=== PATIENT | female | born 1965 | race Caucasian/White ===

== ENCOUNTER 2022-03-28 12:21 | Emergency (ER) | payer MEDICARE, MEDICAID, SELFPAY ==
[2022-03-28 12:39] VITALS: BP 158/74; PULSE 79; RESP 18; TEMP 36.3; O2SAT 94; BMI 44.6
--- NOTE | 2022-03-28 13:02 | CRLHL7_ITS ---
For Patients: As a result of the Century Cures Act, medical imaging exams and procedure reports are released immediately into your electronic medical record. You may view this report before your referring provider. If you have questions, please contact your health care provider. INDICATION: Pain. TECHNIQUE: Three views left knee. IMPRESSION: Minor grade 1 medial joint space narrowing without significant osteophytes or other secondary degenerative finding. Lateral and patellofemoral compartments appear appropriately maintained for age. No fracture or bone lesion. No joint effusion. Dictated by Tj Almaguer MD @ 03/28/2022 1:44:11 PM (Electronically Signed)
--- NOTE | 2022-03-28 13:03 | ED_ITS ---
HPI - General Adult General Date Seen: 03/28/22 Chief complaint: Extremity Pain/Injury, Lower Stated complaint: Left knee injury Time Seen by Provider: 03/28/22 12:31 Source: patient Mode of arrival: ambulatory Limitations: no limitations History of Present Illness HPI narrative: 57-year-old female presents for evaluation of left knee pain and injury. Patient was returning home on an airplane flight 9 days ago. As she was departing the plane she dropped her headphone case. She was moving to pick it up when she felt like her knee buckled. Her description was that it buckled to the lateral aspect of her left knee. She felt a crunching sensation. After that it has been painful. She thought she had some swelling or early on with this. There is no direct blow to her knee and her knee did not land on the ground. When she felt her knee buckle she sat in the airplane seat. She has had no previous knee problems. She has been applying ice and resting her knee for the last few days but the pain is not improved at all. She has been able to walk on it but it is hurting her. She does have an appointment with the orthopedic clinic in 2 days. Related Data Home Medications Medication Instructions Recorded Confirmed albuterol sulfate 90 mcg/actuation 2 INHALATION PRN 03/25/22 03/25/22 aerosol inhaler aspirin 81 mg tablet,delayed 81 mg PO DAILY tab 03/25/22 03/25/22 release cyclobenzaprine 10 mg tablet 10 mg PO .Bedtime 03/25/22 03/25/22 fluoxetine 10 mg capsule 10 mg PO DAILY 03/25/22 03/25/22 fluoxetine 20 mg capsule 20 mg PO DAILY 03/25/22 03/25/22 fluticasone propionate 50 2 INTRANASAL DAILY 03/25/22 03/25/22 mcg/actuation nasal spray,suspension furosemide 20 mg tablet 20 mg PO DAILY tab 03/25/22 03/25/22 gabapentin 300 mg capsule 300 mg PO BID cap 03/25/22 03/25/22 meclizine 12.5 mg tablet 12.5 mg PO PRN 03/25/22 03/25/22 nystatin 100,000 unit/gram topical 1 TOPICAL .2-3X/Day 03/25/22 03/25/22 cream nystatin 100,000 unit/gram topical 1 TOPICAL BID 03/25/22 03/25/22 powder omeprazole 40 mg capsule,delayed 40 mg PO DAILY cap 03/25/22 03/25/22 release prednisone 20 mg tablet 20 mg PO BID tab 03/25/22 03/25/22 sumatriptan succinate 50 mg tablet 50 mg PO .As Needed PRN 03/25/22 03/25/22 trazodone 50 mg tablet 50 mg PO DAILY tab 03/25/22 03/25/22 zonisamide 50 mg capsule mg PO DAILY 03/25/22 03/25/22 amoxicillin 875 mg-potassium 1 tab PO 03/26/22 03/26/22 clavulanate 125 mg tablet benzonatate 100 mg capsule 100 mg PO PRN 03/26/22 03/26/22 Allergies Allergy/AdvReac Type Severity Reaction Status Date / Time No Known Allergies Allergy Unknown Verified 02/24/22 12:03 Review of Systems Narrative: No other injuries. No recent illness. [facility] Medical History (Updated 03/28/22 @ 13:56 by Merrick Smith MD) Chronic otitis media Encounter for removal of intrauterine contraceptive device (IUD) (08/2019) Exposure to severe acute respiratory syndrome coronavirus 2 (SARS-CoV-2) History of use of contraceptive intrauterine device (IUD) Surgical History (Updated 02/24/22 @ 12:04 by Nils Low) History of Achilles tendon repair History of appendectomy History of cervical discectomy (07/28/11) History of section (07/28/11) Family History (Updated 02/23/22 @ 15:48 by Nils Low) Brother Diabetes Other Brain cancer Social History (Updated 02/23/22 @ 15:48 by Nils Low) Narrative: Tobacco use Smoking Status: Never smoker Do you use any of these nicotine containing products: None Second hand tobacco smoke exposure: No How often do you have a drink containing alcohol: never How often do you have six or more drinks on one occasion: Never AUDIT-C Alcohol total score: 0 Non-prescribed substance use: denies use service: No Exam Narrative: Exam Narrative: Bilateral lower extremities are examined. There is no evidence of trauma, redness, swelling or deformity. Inspection of the left knee specifically shows no evidence of trauma or redness. Palpation shows mild tenderness along the anterior joint line both medially and laterally. Palpation over the patella is without significant discomfort. Her extensor mechanisms appears to be intact. Range of motion is from 0-100 degrees of flexion without significant discomfort. I do not palpate a joint effusion. Testing for ligamentous laxity shows a relatively stable tight endpoint on Elyssa's maneuver. Medial lateral collateral ligament testing causes some mild discomfort but no definite laxity is identified. Her calf is nontender there is no significant edema. She has intact pulses sensation and motion in her foot and ankle on the left. Const: Vital Signs, click to edit/add: Vital Signs - 24 hr 03/28/22 12:39 Temperature 97.4 F L Pulse Rate [Right Pulse Oximeter] 79 Respiratory Rate 18 Blood Pressure [Ri ght Upper Arm] 158/74 H Pulse Oximetry 94 Documenting provider has reviewed patient's vital signs: yes Course Course Hospital Course: Patient is able to walk in the emergency department. Radiographs of the knee show mild narrowing of the medial joint space. No other obvious bony abnormalities. Vital Signs Vital signs: Initial Vital Signs Temperature 97.4 F L 03/28/22 12:39 Temperature Source Temporal Artery Scan 03/28/22 12:39 Pulse Rate 79 03/28/22 12:39 Respiratory Rate 18 03/28/22 12:39 Blood Pressure 158/74 H 03/28/22 12:39 Blood Pressure Mean 102 03/28/22 12:39 Blood Pressure Position Sitting 03/28/22 12:39 Pulse Oximetry 94 03/28/22 12:39 Oxygen Delivery Method 03/28/22 12:39 Vital Signs Temperature 97.4 F L 03/28/22 12:39 Pulse Rate 79 03/28/22 12:39 Respiratory Rate 18 03/28/22 12:39 Blood Pressure 158/74 H 03/28/22 12:39 Pulse Oximetry 94 03/28/22 12:39 Temperature 97.4 F L 03/28/22 12:39 Pulse Rate 79 03/28/22 12:39 Respiratory Rate 18 03/28/22 12:39 Blood Pressure 158/74 H 03/28/22 12:39 Pulse Oximetry 94 03/28/22 12:39 Discharge Plan Discharge Clinical Impression: Injury of knee, left Additional Instructions: Take ibuprofen 400 mg every 6 hours as needed for pain. Continue use ice as needed for pain. See Abraham on Tuesday for re-evaluation. Activity Level: Activity as Tolerated Prescriptions: No Action zonisamide 50 mg capsule PO DAILY 0RF gabapentin 300 mg capsule 300 mg PO BID 0RF aspirin 81 mg tablet,delayed release (DR/EC) 81 mg PO DAILY 0RF meclizine 12.5 mg tablet 12.5 mg PO PRN0RF sumatriptan succinate 50 mg tablet 50 mg PO .As Needed PRN0RF Rx Instructions: ONE TAB AT ONSET OF HEADACHE, MAY REPEAT Q2H PRN, MAX 200 MG/24 HRS trazodone 50 mg tablet 50 mg PO DAILY 0RF cyclobenzaprine 10 mg tablet 10 mg PO .Bedtime 0RF fluoxetine 10 mg capsule 10 mg PO DAILY 0RF Rx Instructions: take 1 tablet in addition to prescribed 60mg; total of 70mg daily. prednisone 20 mg tablet 20 mg PO BID 0RF albuterol sulfate 90 mcg/actuation HFA aerosol inhaler 2 inhalation PRN0RF omeprazole 40 mg capsule,delayed release(DR/EC) 40 mg PO DAILY 0RF fluoxetine 20 mg capsule 20 mg PO DAILY 0RF Rx Instructions: Take 3 capsules daily in addition to the already prescribed 10 mg daily. nystatin 100,000 unit/gram powder 1 topical BID 0RF fluticasone propionate 50 mcg/actuation spray,suspension 2 intranasal DAILY 0RF nystatin 100,000 unit/gram cream 1 topical .2-3X/Day 0RF furosemide 20 mg tablet 20 mg PO DAILY 0RF benzonatate 100 mg capsule 100 mg PO PRN0RF amoxicillin-pot clavulanate 875-125 mg tablet 1 tab PO 0RF Follow Up/Referrals: Chelsea Montalvo PA-C [Primary Care Provider] -
--- NOTE | 2022-03-28 13:20 | PC.NURSE ---
pt back from imaging
== END 2022-03-28 14:25 | disposition home or self-care (01) ==
PROVIDERS: Emergency Provider Family Medicine; PCP Physician Assistant Medical
DX: S89.92XA Unspecified injury of left lower leg, initial encounter (principal)
CPT/HCPCS: 73562; 99283

== ENCOUNTER 2022-04-07 12:33 | Outpatient (RCR) | payer MEDICARE, MEDICAID, SELFPAY ==
[2022-04-06 13:00] VITALS: BP 133/84; PULSE 61; RESP 16; TEMP 36.3; O2SAT 95
[2022-04-06] MEDS: VALPROATE SODIUM 1,000 MG in 0.9 % SODIUM CHLORIDE 100 ml 100 ML 660 MG IVPB (13:29)
[2022-04-06] MEDS: METHYLPREDNISOLONE SOD SUCC 1,000 MG in 0.9 % SODIUM CHLORIDE 100 ml 100 ML 116 MG IVPB (13:50)
[2022-04-06] MEDS: KETOROLAC 30 MG/ML inj IVP (14:52)
[2022-04-06] MEDS: ONDANSETRON 2 MG/ML inj 4 MG IVP (14:52)
[2022-04-07 12:49] VITALS: BP 155/83; PULSE 60; RESP 20; TEMP 36.6; O2SAT 96
[2022-04-07] MEDS: VALPROATE SODIUM 1,000 MG in 0.9 % SODIUM CHLORIDE 100 ml 100 ML 660 MG IVPB (13:41)
[2022-04-07] MEDS: METHYLPREDNISOLONE SOD SUCC 1,000 MG in 0.9 % SODIUM CHLORIDE 100 ml 100 ML 116 MG IVPB (13:59)
[2022-04-07] MEDS: ONDANSETRON 2 MG/ML inj 4 MG IVP ×2 (15:16)
[2022-04-07] MEDS: KETOROLAC 30 MG/ML inj IVP (15:17)
[2022-04-07] MEDS: 0.9 % SODIUM CHLORIDE 250 ml IV (16:53)
[2022-04-07] MEDS: SODIUM CHLORIDE 0.9 % (FLUSH) 10 ML SYRINGE IVF (16:54)
== END 2022-10-03 23:59 | disposition home or self-care (01) ==
LOC: CCIC 12:33
PROVIDERS: PCP Physician Assistant Medical; Visit Provider Clinical Nurse Specialist
DX: G43.809 Other migraine, not intractable, without status migrainosus (principal)
CPT/HCPCS: 96360; 96365; 96374; 96376; J1885; J2405; J2930; J7050

== ENCOUNTER 2022-06-24 15:05 | Outpatient (CLI) | payer MEDICARE, MEDICAID, SELFPAY ==
[2022-06-24 22:44] LABS: C Reactive Protein* 2.1 mg/dL (0.5-1.0)
== END 2022-06-24 15:06 | disposition home or self-care (01) ==
LOC: LKVREF 15:07
PROVIDERS: PCP Physician Assistant Medical; Visit Provider Physician Assistant Medical
DX: G43.809 Other migraine, not intractable, without status migrainosus (principal)
CPT/HCPCS: 86140

== ENCOUNTER 2022-07-14 14:35 | Outpatient (CLI) | payer MEDICARE, MEDICAID, SELFPAY ==
--- NOTE | 2022-07-14 14:30 | CRLHL7_ITS ---
For Patients: As a result of the Cures Act, medical imaging exams and procedure reports are released immediately into your electronic medical record. You may view this report before your referring provider. If you have questions, please contact your health care provider. INDICATION: Vertigo. Left ear pain/fullness. TECHNIQUE: Brain and temporal bone MRI with contrast. The following sequences were obtained: DWI and ADC mapping sequences. Sagittal T1 weighted sequence. Axial FLAIR and SHARRI T2 weighted sequences of the whole brain. 3D T2-weighted CISS sequence of the temporal bones. Thin section T1 weighted axial and coronal pre-contrast and post-contrast sequences of the temporal bones. T1 weighted post-contrast sequence(s) of the whole brain. 15 cc of Dotarem gadolinium based contrast agent was used. COMPARISON : Brain MRI from 10/07/2020. FINDINGS: The membranous labyrinths are normal in appearance, with no signal abnormality or malformation. No mass or pathologic enhancement within the internal auditory canals or the cerebellopontine angle cisterns. The cisternal and canalicular segments of the 7th/8th cranial nerve complexes are normal in appearance. The other imaged cranial nerve segments are normal in appearance. Brainstem and cerebellum are normal. No evidence of acute ischemia. No evidence of acute or chronic intracranial blood products. No mass or pathologic intracranial enhancement. A few small FLAIR hyperintense foci within the supratentorial white matter, typical for chronic microvascular ischemic change. No hydrocephalus or extra-axial collections. The pituitary gland, parasellar structures and optic chiasm are normal. All the major intracranial vascular structures demonstrate normal flow-related signal. The orbital contents are normal. No calvarial or skull base marrow replacing process. No obstructive sinus disease. No extracranial soft tissue findings. IMPRESSION: 1. Normal appearance of the internal auditory pathways on high resolution imaging of the temporal bones. No mass or pathologic enhancement within the internal auditory canals or CPA cisterns. Normal appearance of the 7th/8th cranial nerves. 2. No acute infarction or other acute intracranial pathology. 3. No mass or pathologic intracranial enhancement. 4. Very minimal chronic microvascular ischemic change. Dictated by Kaushik Degroot MD @ 07/14/2022 6:19:12 PM (Electronically Signed)
--- NOTE | 2022-07-14 15:30 | CRLHL7_ITS ---
For Patients: As a result of the Century Cures Act, medical imaging exams and procedure reports are released immediately into your electronic medical record. You may view this report before your referring provider. If you have questions, please contact your health care provider. INDICATION: Vertigo. Headaches. TECHNIQUE: [id number] MRA images acquired through the head. COMPARISON: None. FINDINGS: The visualized internal carotid, middle cerebral, and anterior cerebral arteries are widely patent. The vertebral, basilar, and posterior cerebral arteries are widely patent. No intracranial aneurysm or high-flow vascular malformation. IMPRESSION: Unremarkable MRA of the head. Dictated by Keyon Hoang MD @ 07/14/2022 4:21:15 PM (Electronically Signed)
== END 2022-07-14 14:36 | disposition home or self-care (01) ==
PROVIDERS: PCP Physician Assistant Medical; Visit Provider Physician Assistant Medical
DX: R42 Dizziness and giddiness (principal); I67.82 Cerebral ischemia; H92.02 Otalgia, left ear
CPT/HCPCS: 70544; 70553; A9575

== ENCOUNTER 2022-07-21 15:10 | Outpatient (CLI) | payer MEDICARE, MEDICAID, SELFPAY ==
[2022-07-21 21:41] LABS: Iron* 47 ug/dL (37-170)
[2022-07-21 21:48] LABS: C Reactive Protein* 3.1 mg/dL (0.5-1.0)
[2022-07-21 21:50] LABS: Percent Iron Saturation 13 % (20-50); Total Iron Binding Capacity 360 ug/dL (265-497)
[2022-07-23 20:16] LABS: Rheumatoid Factor <10 IU/mL (0-14)
[2022-07-24 12:25] LABS: Anti-Nuclear Ab(ANA)IgG ELISA None Detected (None Detected)
[2022-07-24 16:22] LABS: HLA-B27 Negative (Negative)
== END 2022-07-21 15:11 | disposition home or self-care (01) ==
PROVIDERS: PCP Physician Assistant Medical; Visit Provider Physician Assistant Medical
DX: G43.809 Other migraine, not intractable, without status migrainosus (principal); R70.0 Elevated erythrocyte sedimentation rate; E05.90 Thyrotoxicosis, unspecified without thyrotoxic crisis or storm; E05.00 Thyrotoxicosis with diffuse goiter without thyrotoxic crisis or storm; H81.09 Meniere's disease, unspecified ear; I42.2 Other hypertrophic cardiomyopathy; Z13.0 Encounter for screening for diseases of the blood and blood-forming organs and certain disorders involving the immune mechanism; Z01.83 Encounter for blood typing
CPT/HCPCS: 83516; 83540; 83550; 86039; 86140; 86431; 86812

== ENCOUNTER 2022-08-02 21:29 | Emergency (ER) | payer MEDICARE, MEDICAID, SELFPAY ==
[2022-08-02 22:10] VITALS: BP 100/69; PULSE 68; RESP 16; TEMP 36.9; O2SAT 98
[2022-08-02 22:41] VITALS: BP 117/68; PULSE 66; RESP 16; TEMP 36.9; O2SAT 98
[2022-08-02 23:00] VITALS: BP 122/69; PULSE 71; RESP 16; O2SAT 99
[2022-08-02 23:19] VITALS: O2SAT 99
--- NOTE | 2022-08-02 23:20 | CRLHL7_ITS ---
For Patients: As a result of the Century Cures Act, medical imaging exams and procedure reports are released immediately into your electronic medical record. You may view this report before your referring provider. If you have questions, please contact your health care provider. INDICATION: Headache. TECHNIQUE: CT head without contrast. COMPARISON: 07/14/2022. FINDINGS: CSF spaces: Within normal limits for age. Brain parenchyma: The kelly-white differentiation is normal. No sign of mass, hemorrhage, or midline shift. Skull base and calvarium: The visualized paranasal sinuses and mastoid air cells demonstrate no acute or significant findings. The visualized orbits are grossly unremarkable. No skull fractures. IMPRESSION: No acute intracranial abnormality. Please note that all CT scans at this facility use dose modulation, iterative reconstruction, and/or weight-based dosing when appropriate to reduce radiation dose to as low as reasonably achievable. Dictated by Kale Lynn MD @ 08/03/2022 1:19:14 AM (Electronically Signed)
[2022-08-02 23:30] VITALS: BP 121/71; PULSE 66; RESP 16; O2SAT 99
--- NOTE | 2022-08-02 23:31 | ED.NURSE ---
patient asking if she can leave and follow up with PCP tomorrow, pt states she feels better now. MD Larios updated and is in to talk with patient.
[2022-08-02] MEDS: 0.9 % SODIUM CHLORIDE 1000 ml 1,000 ML IV (23:50)
[2022-08-02 23:53] LABS: Basophils Absolute Auto 0.02 K/uL (0.00-0.30); Basophils Percent Auto 0.2 % (0.0-3.0); Eosinophils Percent Auto 1.2 % (0.0-7.0); Hematocrit 40.3 % (33.0-51.0); Hemoglobin* 13.1 gm/dL (12.0-16.0); Immature Granulocytes Abs Auto 0.08 K/uL (0.00-0.30); Lymphocytes Percent Auto 18.2 % (20-44); Mean Corpuscular HGB Conc 33 gm/dL (32-36); Mean Corpuscular Hemoglobin 25 pg (26-34); Mean Corpuscular Volume 77 fL (80-100); Monocytes Percent Auto 6.6 % (0.0-11.0); Neutrophils Percent Auto 72.8 % (42.0-72.0); Platelet Count* 192 K/uL (140-440); RDW Coefficient of Variation % 15.7 % (11.5-15.5); Red Blood Count 5.25 m/uL (4.00-5.20); White Blood Count* 8.34 K/uL (4.50-11.00)
[2022-08-02 23:54] LABS: Slide Review Reflex No
[2022-08-03 00:20] LABS: Chloride* 111 mmol/L (96-114); Potassium* 4.7 mmol/L (3.6-5.1)
[2022-08-03 00:21] LABS: Sodium* 140 mmol/L (135-149)
[2022-08-03 00:23] LABS: Estimated Glomerular Filt Rate 66 ml/min
[2022-08-03 00:24] LABS: Blood Urea Nitrogen* 20 mg/dL (7-30); Calcium* 8.7 mg/dL (8.4-10.6); Carbon Dioxide* 25 mmol/L (20-32); Glucose* 105 mg/dL (60-115); Magnesium* 2.2 mg/dL (1.5-2.6)
[2022-08-03 00:27] LABS: C Reactive Protein* 1.8 mg/dL (0.5-1.0)
[2022-08-03 00:33] LABS: NT Pro B Type NatriureticPept* 39 PG/mL (0-125)
[2022-08-03 00:36] LABS: Troponin I* < 0.01 ng/mL (0.01-0.04)
--- NOTE | 2022-08-03 00:41 | ED_ITS ---
HPI - General Adult General Chief complaint: Dizziness/Vertigo Stated complaint: Dizzy Blood Pressure Issues Time Seen by Provider: 08/02/22 22:45 History of Present Illness HPI narrative: 57-year-old woman presenting to the emergency department along with her son with concern of low blood pressure. Few weeks ago was initiated on losartan and 3 days ago on amlodipine for hypertension. Systolics were far over 200 as described. She had been cooking and having increasing back pain and was sitting I believe talking with her son when had a sudden whoosh sensation in the left side of her head and then generally feeling unwell. It just felt like she had to get outside for some fresh air. Did check her blood pressure a couple of times with a home cuff measuring mid-low 60s over 40s. She does recall around this time also experiencing some left side pain. Otherwise no dysuria frequency urgency. No hematuria noted. Blood pressures have rebounded. Still with quite a headache over the left side of her head and hypersensitivity to palpation over the left side. Does have a history of Meniere's and vertiginous symptoms but this was does not like that. Two weeks ago she does say that had a normal head MRI/MRA as part of this workup. I do review records in this regard and imaging does look to have been unremarkable. This evening there were no palpitations or chest pain. No shortness of breath. Has not been febrile. She is worried that the blood pressure medications could have contributed to these symptoms. Is quite thirsty. One month ago received drainage and antibiotics for what sounds like an abscess of right eye tooth. Sounds like that has improved but pending extraction/full root canal. Related Data Home Medications Medication Instructions Recorded Confirmed aspirin 81 mg tablet,delayed 81 mg PO DAILY 03/25/22 08/02/22 release cyclobenzaprine 10 mg tablet 10 mg PO .Bedtime 03/25/22 08/02/22 fluticasone propionate 50 2 spray intranasal DAILY PRN 03/25/22 08/02/22 mcg/actuation nasal spray,suspension gabapentin 300 mg capsule 300 mg PO BID 03/25/22 08/02/22 meclizine 12.5 mg tablet 12.5 mg PO DIRECTED PRN 03/25/22 08/02/22 nystatin 100,000 unit/gram topical 1 applic topical .2-3X/Day 03/25/22 08/02/22 cream sumatriptan succinate 50 mg tablet 50 mg PO .As Needed PRN 03/25/22 08/02/22 zonisamide 25 mg capsule 100 mg PO QDAY 08/02/22 08/02/22 Previous Rx's Medication Instructions Recorded fluoxetine 10 mg capsule 10 mg PO DAILY #90 caps 03/28/22 fluoxetine 20 mg capsule 20 mg PO DAILY #90 caps 03/29/22 nystatin 100,000 unit/gram topical 1 applic topical BID #60 grams 04/28/22 powder omeprazole 40 mg capsule,delayed 40 mg PO DAILY #90 caps 04/28/22 release fluticasone propionate 50 2 spray intranasal QDAY 30 days 05/18/22 mcg/actuation nasal #16 grams spray,suspension loratadine 10 mg tablet (Allergy 10 mg PO QDAY 1 month #30 tabs 05/18/22 Relief (loratadine)) albuterol sulfate 90 mcg/actuation 2 puff inhalation Q4H PRN 06/24/22 aerosol inhaler bronchospasm #6.7 grams furosemide 20 mg tablet 20 mg PO DAILY #90 tabs 07/21/22 amlodipine 5 mg tablet 5 mg PO QDAY #30 tabs 07/29/22 losartan 25 mg tablet 50 mg PO DAILY #90 tabs 08/02/22 Allergies Allergy/AdvReac Type Severity Reaction Status Date / Time No Known Allergies Allergy Unknown Verified 08/02/22 13:48 Review of Systems Status of ROS: Reports: 6 or more systems reviewed and unremarkable except as noted in History and below [facility] Medical History Cellulitis of right hip Chronic otitis media Encounter for removal of intrauterine contraceptive device (IUD) (08/2019) Exposure to severe acute respiratory syndrome coronavirus 2 (SARS-CoV-2) History of use of contraceptive intrauterine device (IUD) Surgical History History of Achilles tendon repair History of appendectomy History of cervical discectomy (07/28/11) History of section (07/28/11) Family History Brother Diabetes Other Brain cancer Social History Narrative: Tobacco use Smoking Status: Current every day smoker What tobacco products do you use: cigarettes Smoking packs per day: 0.25 Smoking cigarettes per day: 5.0 Do you use any of these nicotine containing products: None Second hand tobacco smoke exposure: No How often do you have a drink containing alcohol: never How often do you have six or more drinks on one occasion: Never AUDIT-C Alcohol total score: 0 Non-prescribed substance use: marijuana (any form) Non-prescribed substance use details: medical [facility] Little interest or pleasure in doing things: more than half the days Feeling down, depressed, or hopeless: more than half the days service: No Exam Narrative: Exam Narrative: Very pleasant. Initially with her hoodie over her head as if photophobic. Is speaking fluidly easily. Breathing easily. Cranial nerves 2-12 intact. Oropharynx is dry. Moving all extremities without difficulty. Notes no lower extremity edema. Lungs are clear. Little sore to palpation over the low back musculature. No abdominal pain. Is overweight. No masses appreciated. Extremities are without edema and well perfused. Further examination of the neck does show good deal of tenderness in the upper left occipital insertion area periscapular musculature. She is also sore to palpation over the left side of her head. No lesions are noted. Tooth #6 has been repaired. No swelling or erythema appreciated. Const: Vital Signs, click to edit/add: Vital Signs - 24 hr 08/02/22 22:10 08/02/22 22:41 08/02/22 23:19 Temperature 98.4 F 98.4 F Pulse Rate [Left P ulse Oximeter] 68 66 Respiratory Rate 16 16 Blood Pressure [Ri ght Upper Arm] 100/69 117/68 Pulse Oximetry 98 98 99 Oxygen Delivery Me thod Room Air Room Air 08/02/22 23:30 08/02/22 23:00 08/03/22 01:00 Temperature Pulse Rate [Left P ulse Oximeter] 66 71 72 Respiratory Rate 16 16 16 Blood Pressure [Ri ght Upper Arm] 121/71 122/69 112/67 Pulse Oximetry 99 99 99 Oxygen Delivery Me thod Room Air Room Air Room Air Documenting provider has reviewed patient's vital signs: yes Course Vital Signs Vital signs: Initial Vital Signs Temperature 98.4 F 08/02/22 22:10 Temperature Source Temporal Artery Scan 12/05/22 22:10 Pulse Rate 68 08/02/22 22:10 Respiratory Rate 16 08/02/22 22:10 Blood Pressure 100/69 08/02/22 22:10 Blood Pressure Mean 79 08/02/22 22:10 Blood Pressure Position Sitting 08/02/22 22:10 Pulse Oximetry 98 08/02/22 22:10 Oxygen Delivery Method 08/02/22 22:10 Vital Signs Temperature 98.4 F 08/02/22 22:10 Pulse Rate 68 08/02/22 22:10 Respiratory Rate 16 08/02/22 22:10 Blood Pressure 100/69 08/02/22 22:10 Pulse Oximetry 98 08/02/22 22:10 Oxygen Delivery Method 08/02/22 22:10 Temperature 98.4 F 08/02/22 22:41 Pulse Rate 72 08/03/22 01:00 Respiratory Rate 16 08/03/22 01:00 Blood Pressure 112/67 08/03/22 01:00 Pulse Oximetry 99 08/03/22 01:00 Oxygen Delivery Method 08/03/22 01:00 Medical Decision Making MDM Narrative Medical decision making narrative: I would suspect possibly a pain reaction resulting in vasovagal event all amplified by underlying history of Meniere's and dehydration. This could have been a cardiac event however and does warrant further workup. Given the degree of discomfort she is having her head I think would also warrant CT imaging. I realize she has recently had MRI. Initially while deferring to her son's work schedule was wanting to return home with nothing more done. I did go and discuss my concerns though acknowledging what I suspect is a vasovagal event. We decided to proceed with workup here. We will also treat her headache. She does not feel she needs any pain medication but would like some IV fluids. On re-evaluation overall improved. Only mild residual headache. Head CT reviewed by me does not show any acute abnormality. Pending on discharge is urinalysis. Lab Data Lab results reviewed: Yes I reviewed the patient's lab results Labs: Lab Results 08/02/22 08/02/22 08/02/22 Range/Units 23:44 23:44 23:44 WBC 8.34 (4.50-11.00) K/uL RBC 5.25 H (4.00-5.20) m/uL Hgb 13.1 (12.0-16.0) gm/dL Hct 40.3 (33.0-51.0) % MCV 77 L (80-100) fL MCH 25 L (26-34) pg MCHC 33 (32-36) gm/dL RDW Coeff of Miguel 15.7 H (11.5-15.5) % Plt Count 192 (140-440) K/uL Neut % (Auto) 72.8 H (42.0-72.0) % Lymph % (Auto) 18.2 L (20-44) % [place] % (Auto) 6.6 (0.0-11.0) % Eos % (Auto) 1.2 (0.0-7.0) % Baso % (Auto) 0.2 (0.0-3.0) % Neut # (Auto) 6.10 (1.7-7.0) K/uL Lymph # (Auto) 1.50 (0.90-2.90) K/uL [place] # (Auto) 0.60 (0.00-0.90) K/UL Eos # (Auto) 0.10 (0.00-0.50) K/uL Baso # (Auto) 0.02 (0.00-0.30) K/uL Abs Immat Gran (auto) 0.08 (0.00-0.30) K/uL Imm/Tot Granulo (auto) 1.0 % Sodium 140 (135-149) mmol/L Potassium 4.7 (3.6-5.1) mmol/L Chloride 111 (96-114) mmol/L Carbon Dioxide 25 (20-32) mmol/L BUN 20 (7-30) mg/dL Creatinine 1.0 (0.5-1.5) mg/dL Estimated GFR 66 ml/min Glucose 105 (60-115) mg/dL Calcium 8.7 (8.4-10.6) mg/dL Magnesium 2.2 (1.5-2.6) mg/dL Troponin I < 0.01 L (0.01-0.04) ng/mL C-Reactive Protein 1.8 H (0.5-1.0) mg/dL NT-Pro-B Natriuret Pep 39 (0-125) PG/mL Urine Color (Yellow) Urine Appearance (Clear) Urine pH (5.0-8.5) Ur Specific [place] (1.000-1.030) Urine Protein (Negative) Urine Glucose (UA) (Negative) Urine Ketones (Negative) Urine Blood (Negative) Urine Nitrite (Negative) Urine Bilirubin (Negative) Urine Urobilinogen (0.2-1.0) Ur Leukocyte Esterase (Negative) Urine RBC (0-2) Urine WBC (0-5) Ur Squamous Epith Cells (None-Few) Amorphous Sediment (None) Urine Bacteria (None) Urine Mucus (None) POC Troponin I 0.00 L (0.01-0.04) ng/ml 08/03/22 Range/Units 01:20 WBC (4.50-11.00) K/uL RBC (4.00-5.20) m/uL Hgb (12.0-16.0) gm/dL Hct (33.0-51.0) % MCV (80-100) fL MCH (26-34) pg MCHC (32-36) gm/dL RDW Coeff of Miguel (11.5-15.5) % Plt Count (140-440) K/uL Neut % (Auto) (42.0-72.0) % Lymph % (Auto) (20-44) % [place] % (Auto) (0.0-11.0) % Eos % (Auto) (0.0-7.0) % Baso % (Auto) (0.0-3.0) % Neut # (Auto) (1.7-7.0) K/uL Lymph # (Auto) (0.90-2.90) K/uL [place] # (Auto) (0.00-0.90) K/UL Eos # (Auto) (0.00-0.50) K/uL Baso # (Auto) (0.00-0.30) K/uL Abs Immat Gran (auto) (0.00-0.30) K/uL Imm/Tot Granulo (auto) % Sodium (135-149) mmol/L Potassium (3.6-5.1) mmol/L Chloride (96-114) mmol/L Carbon Dioxide (20-32) mmol/L BUN (7-30) mg/dL Creatinine (0.5-1.5) mg/dL Estimated GFR ml/min Glucose (60-115) mg/dL Calcium (8.4-10.6) mg/dL Magnesium (1.5-2.6) mg/dL Troponin I (0.01-0.04) ng/mL C-Reactive Protein (0.5-1.0) mg/dL NT-Pro-B Natriuret Pep (0-125) PG/mL Urine Color Yellow (Yellow) Urine Appearance Cloudy A (Clear) Urine pH 8.0 (5.0-8.5) Ur Specific [place] 1.020 (1.000-1.030) Urine Protein Negative (Negative) Urine Glucose (UA) Negative (Negative) Urine Ketones Negative (Negative) Urine Blood Negative (Negative) Urine Nitrite Negative (Negative) Urine Bilirubin Negative (Negative) Urine Urobilinogen 2.0 A (0.2-1.0) Ur Leukocyte Esterase Negative (Negative) Urine RBC 2-5 A (0-2) Urine WBC 2-5 (0-5) Ur Squamous Epith Cells Few (None-Few) Amorphous Sediment Few A (None) Urine Bacteria Moderate A (None) Urine Mucus Moderate A (None) POC Troponin I (0.01-0.04) ng/ml ECG Data Attestation: I personally reviewed and interpreted this ECG as follows: (A sinus bradycardia at a rate of 58. No ischemic changes otherwise noted. ) Discharge Plan Discharge Clinical Impression: Back pain, Headache, Vasovagal episode, Dehydration Patient Disposition: Home w/ Parent or Adult Additional Instructions: Important to stay well hydrated. I think being down on fluids contributed to your symptoms today. Return if this happens again. I do not think you need to take any more blood pressure medicines tonight but otherwise I would take them as dosed/prescribed. I will call you if something is remarkable in your urine. Prescriptions: No Action gabapentin 300 mg capsule 300 mg PO BID aspirin 81 mg tablet,delayed release (DR/EC) 81 mg PO DAILY meclizine 12.5 mg tablet 12.5 mg PO DIRECTED PRN sumatriptan succinate 50 mg tablet 50 mg PO .As Needed PRN Rx Instructions: ONE TAB AT ONSET OF HEADACHE, MAY REPEAT Q2H PRN, MAX 200 MG/24 HRS cyclobenzaprine 10 mg tablet 10 mg PO .Bedtime fluticasone propionate 50 mcg/actuation spray,suspension 2 spray intranasal DAILY PRN nystatin 100,000 unit/gram cream 1 applic topical .2-3X/Day nystatin 100,000 unit/gram powder 1 applic topical BID Qty: 60 3RF omeprazole 40 mg capsule,delayed release(DR/EC) 40 mg PO DAILY Qty: 90 3RF Rx Instructions: for GERD fluticasone propionate 50 mcg/actuation spray,suspension 2 spray intranasal QDAY 30 Days Qty: 16 11RF Rx Instructions: administer into each nostril loratadine [Allergy Relief (loratadine)] 10 mg tablet 10 mg PO QDAY 30 Days Qty: 30 3RF furosemide 20 mg tablet 20 mg PO DAILY Qty: 90 1RF losartan 25 mg tablet 50 mg PO DAILY Qty: 90 3RF Rx Instructions: once daily for blood pressure albuterol sulfate 90 mcg/actuation HFA aerosol inhaler 2 puff inhalation Q4H PRN (Reason: bronchospasm) Qty: 6.7 3RF zonisamide 25 mg capsule 100 mg PO QDAY Label Comments: Patient takes 4 at bedtime. fluoxetine 10 mg capsule 10 mg PO DAILY Qty: 90 3RF Rx Instructions: take 1 tablet in addition to prescribed 60mg; total of 70mg daily. fluoxetine 20 mg capsule 20 mg PO DAILY Qty: 90 3RF Rx Instructions: Take 3 capsules daily in addition to the already prescribed 10 mg daily. amlodipine 5 mg tablet 5 mg PO QDAY Qty: 30 0RF Rx Instructions: Take 1 tablet daily for high blood pressure Follow Up/Referrals: Chelsea Montalvo PA-C [Primary Care Provider] - Stand Alone Forms: [facility] Info Instructions
[2022-08-03 01:00] VITALS: BP 112/67; PULSE 72; RESP 16; O2SAT 99
[2022-08-03 01:38] LABS: Appearance Urine Cloudy (Clear); Bilirubin Urine Negative (Negative); Blood Urine Negative (Negative); Color Urine Yellow (Yellow); Glucose Urine Negative (Negative); Ketones Urine Negative (Negative); Leukocyte Esterase Urine Negative (Negative); Nitrite Urine Negative (Negative); Protein Urine Negative (Negative)
[2022-08-03 01:49] LABS: Amorphous Sediment Urine Few; Bacteria Urine Moderate; Mucus Urine Moderate; Squamous Epithelial Cell Urine Few (None-Few)
== END 2022-08-03 01:41 | disposition home or self-care (01) ==
PROVIDERS: Emergency Provider Family Medicine; PCP Physician Assistant Medical
DX: M54.9 Dorsalgia, unspecified (principal); R51.9 Headache, unspecified; R55 Syncope and collapse; E86.0 Dehydration
CPT/HCPCS: 36415; 70450; 80048; 81001; 83735; 83880; 84443; 84484; 85025; 86140; 87086; 93005; 94761; 96360; 99284; J7030

== ENCOUNTER 2023-01-05 13:30 | Outpatient (RCR) | payer MEDICARE, MEDICAID, SELFPAY ==
--- NOTE | 2023-01-04 06:39 | URNOTE ---
Request received for authorization for [facility] ([id number]). Prior authorization is not required as services are based on medical necessity and follow Medicare guidelines.
[2023-01-04] MEDS: KETOROLAC 30 MG/ML inj IVP (14:11)
[2023-01-04] MEDS: ONDANSETRON 2 MG/ML inj 4 MG IVP (14:11)
[2023-01-04] MEDS: VALPROATE SODIUM 1,000 MG in 0.9 % SODIUM CHLORIDE 100 ml 100 ML 660 MG IVPB (14:17)
[2023-01-04] MEDS: METHYLPREDNISOLONE SOD SUCC 1,000 MG in 0.9 % SODIUM CHLORIDE 100 ml 100 ML 116 MG IVPB (14:27)
[2023-01-05 14:14] VITALS: BP 121/60; PULSE 67; RESP 16; TEMP 36.4; O2SAT 95
[2023-01-05] MEDS: KETOROLAC 30 MG/ML inj IVP (14:58)
[2023-01-05] MEDS: ONDANSETRON 2 MG/ML inj 4 MG IVP (14:59)
[2023-01-05] MEDS: VALPROATE SODIUM 1,000 MG in 0.9 % SODIUM CHLORIDE 100 ml 100 ML 660 MG IVPB (15:00)
[2023-01-05] MEDS: METHYLPREDNISOLONE SOD SUCC 1,000 MG in 0.9 % SODIUM CHLORIDE 100 ml 100 ML 116 MG IVPB (15:25)
== END 2023-07-03 23:59 | disposition home or self-care (01) ==
LOC: CCIC 13:30
PROVIDERS: PCP Physician Assistant Medical; Referring Provider Physician Assistant Medical; Visit Provider Clinical Nurse Specialist
DX: G43.809 Other migraine, not intractable, without status migrainosus (principal)
CPT/HCPCS: 96365; 96366; 96374; 96376; J1885; J2405; J2930

== ENCOUNTER 2023-02-03 16:11 | Outpatient (CLI) | payer MEDICARE, MEDICAID, SELFPAY | END 2023-02-03 16:12 | disposition home or self-care (01) | PROVIDERS: PCP Physician Assistant Medical; Visit Provider Physician Assistant Medical | DX: I10 Essential (primary) hypertension (principal); R70.0 Elevated erythrocyte sedimentation rate; E05.90 Thyrotoxicosis, unspecified without thyrotoxic crisis or storm; F32.A Depression, unspecified; G89.29 Other chronic pain; I42.2 Other hypertrophic cardiomyopathy; R53.83 Other fatigue; Z13.0 Encounter for screening for diseases of the blood and blood-forming organs and certain disorders involving the immune mechanism | CPT/HCPCS: 83540; 83550; 84443 ==

== ENCOUNTER 2023-02-24 14:02 | Outpatient (CLI) | payer MEDICARE, MEDICAID, SELFPAY | END 2023-02-24 14:03 | disposition home or self-care (01) | LOC: RAD 14:03 | PROVIDERS: PCP Physician Assistant Medical; Visit Provider Physician Assistant Medical | DX: I42.2 Other hypertrophic cardiomyopathy (principal); R01.1 Cardiac murmur, unspecified | CPT/HCPCS: 93306 ==

== ENCOUNTER 2023-04-21 15:25 | Outpatient (CLI) | payer MEDICARE, MEDICAID, SELFPAY | END 2023-04-21 15:26 | disposition home or self-care (01) | LOC: LKVREF 15:30 | PROVIDERS: PCP Physician Assistant Medical; Visit Provider Family Medicine | DX: R63.4 Abnormal weight loss (principal) | CPT/HCPCS: 84443 ==

== ENCOUNTER 2023-07-06 13:20 | Outpatient (CLI) | payer MEDICARE, MEDICAID, SELFPAY | END 2023-07-06 13:21 | disposition home or self-care (01) | LOC: NFLDREF 07-07 06:25 | PROVIDERS: PCP Physician Assistant Medical; Referring Provider Physician Assistant Medical; Visit Provider Nurse Practitioner Family | DX: R19.7 Diarrhea, unspecified (principal) | CPT/HCPCS: 87493; 87505 ==

== ENCOUNTER 2023-07-28 09:45 | Outpatient (CLI) | payer MEDICARE, MEDICAID, SELFPAY | END 2023-07-28 09:46 | disposition home or self-care (01) | PROVIDERS: PCP Physician Assistant Medical; Visit Provider Family Medicine | DX: E05.90 Thyrotoxicosis, unspecified without thyrotoxic crisis or storm (principal); I10 Essential (primary) hypertension; R53.83 Other fatigue | CPT/HCPCS: 80053; 82043; 82570; 84443 ==

== ENCOUNTER 2023-08-23 13:08 | Outpatient (CLI) | payer MEDICARE, MEDICAID, SELFPAY ==
--- NOTE | 2023-08-23 13:12 | CRLHL7_ITS ---
For Patients: As a result of the Cures Act, medical imaging exams and procedure reports are released immediately into your electronic medical record. You may view this report before your referring provider. If you have questions, please contact your health care provider. BILATERAL SCREENING MAMMOGRAM WITH COMPUTER-AIDED DETECTION AND TOMOSYNTHESIS TECHNIQUE: CC and MLO views were obtained. These mammographic images have been obtained using full-field digital technique. These mammographic images were interpreted with the benefit of computer-aided detection. Breast Tomosynthesis was used in this interpretation. COMPARISON FILM: 10/22/21, 10/23/19, 02/09/16. FINDINGS: There are scattered areas of fibroglandular density IMPRESSION: There is no radiographic evidence for malignancy. ASSESSMENT: BI-RADS Category 1: Negative RECOMMENDATION: Routine screening mammogram in 1 year. A lay language report of this examination will be provided to the patient. Timmy Mandujano M.D. Diagnostic Radiologist [email or web address] [email or web address]/[email or web address] / be/Dictated by: Timmy Mandujano MD @ 08/24/2023 9:02:00 AM (Electronically Signed)
== END 2023-08-23 13:09 | disposition home or self-care (01) ==
LOC: MAMMO 13:08
PROVIDERS: PCP Physician Assistant Medical; Visit Provider Physician Assistant Medical
DX: Z12.31 Encounter for screening mammogram for malignant neoplasm of breast
CPT/HCPCS: 77063; 77067

== ENCOUNTER 2023-10-12 15:01 | Outpatient (CLI) | payer MEDICARE, MEDICAID, SELFPAY ==
--- NOTE | 2023-10-12 15:05 | CT_ITS ---
Final Report Patient: SALLY POTTER Facility:?[facility] Patient ID:?[id number] Site Patient ID:?[id number]. Site :?[id number] Study:?CT Chest LUNG SCREENING-10/12/2023 3:27:06 PM Ordering Physician:ABNER Final Report: INDICATION: Lung cancer screening. History of smoking. High risk patient with greater than 20 pack-year smoking history. TECHNIQUE: Low-dose lung cancer screening non-contrast CT chest. Dose reduction techniques were used. COMPARISON: 08/27/2022 FINDINGS: NODULES: Stable 2-3 millimeter nodule within the right lung apex and within the left lower lobe. LUNGS AND PLEURA: Emphysema. Interval development of patchy ill-defined densities in both upper lobes. MEDIASTINUM: No suspicious lymph nodes are present. CORONARY ARTERY CALCIFICATION: Present. LIMITED UPPER ABDOMEN: Unremarkable. MUSCULOSKELETAL: Neurostimulator wire. Postop changes lower cervical spine. IMPRESSION: 1. Negative for lung cancer screening purposes. 2. Mild bilateral upper lobe infiltrates. LUNG-RADS CATEGORY: 2: Benign. RADIOLOGIST RECOMMENDATION: Continue annual screening with low-dose CT chest in 12 months. Please note that all CT scans at this facility use dose modulation, iterative reconstruction, and/or weight-based dosing when appropriate to reduce radiation dose to as low as reasonably achievable. Dictated by Timmy Mandujano MD @ 10/14/2023 2:47:19 PM (Electronic Signature
== END 2023-10-12 15:02 | disposition home or self-care (01) ==
LOC: CT 15:02
PROVIDERS: PCP Physician Assistant Medical; Visit Provider Physician Assistant Medical
DX: Z12.2 Encounter for screening for malignant neoplasm of respiratory organs (principal); Z87.891 Personal history of nicotine dependence
CPT/HCPCS: 71271

== ENCOUNTER 2023-10-20 06:08 | Day surgery (SDC) | payer MEDICARE, MEDICAID, SELFPAY ==
[2023-10-20] MEDS: SODIUM CHLORIDE 0.9 % (FLUSH) 10 ML SYRINGE IVF (06:25)
[2023-10-20] MEDS: LACTATED RINGERS 1000 ML 1,000 ML 100 ML IV (06:25)
[2023-10-20 06:32] VITALS: BP 139/77; PULSE 55; RESP 16; TEMP 36.6; O2SAT 95; BMI 39.8
--- NOTE | 2023-10-20 07:13 | W.PM.H&PU ---
History & Physical Update History & Physical Update H&P Reviewed and patient assessed: No changes noted H&P Updates: Ivana had a Pap smear 09/11/2019 with results of LSIL, positive HPV. This was her 1st abnormal Pap. She had had a new sexual partner 2 years prior to that result. She did have colposcopy with endocervical curettage with Dr. Milan in September of 2019. Colposcopy was normal. Endocervical curettage showed benign results. She has not had a Pap smear since that time. She is a smoker of a half pack a day. Repeat pap 07/11/23: LSIL / HPV negative Plan is for colposcopy with cervical biopsy today, under sedation
[2023-10-20 08:15] VITALS: BP 138/88; PULSE 58; RESP 14; TEMP 36.4; O2SAT 96
--- NOTE | 2023-10-20 08:17 | W.ANESCHARGE ---
Anesthesia Charges Start Date/Time Anesthesia Start Date: 10/20/23 Anesthesia Start Time: 07:24 Stop Date/Time Anesthesia Stop Date: 10/20/23 Anesthesia Stop Time: 08:18
--- NOTE | 2023-10-20 08:18 | W.PM.GYNPROC ---
Procedure Note Date of procedure: 10/20/23 Pre-op diagnosis: LSIL pap Post-op diagnosis: same Procedure: Colposcopy with endocervical curettage Anesthesia: MAC Complications: none Surgeon: Di Franks MD Estimated blood loss (mL): 0 Pathology: specimen obtained, sent to pathology (endocervical curettage; specimen name confirmed at time of post-op debrief) Condition: stable Disposition: same day Findings: as below Procedure Description: Procedure note: Colposcopy with endocervical curettage Speculum inserted. Cervix visualized and cleansed with 5% acetic acid. Colposcope employed to visualize cervix. Unable to visualize transformation zone due to location within the endocervical canal. No aceto-white epithelium, abnormal vasculature, or mosaicism noted on 6 or 10 X magnification or green filter. ECC performed in a circumferential fashion and sent to pathology. Hemostasis is noted. Patient tolerated procedure well.
[2023-10-20 08:30] VITALS: BP 146/80; PULSE 53; RESP 14; O2SAT 95
[2023-10-20 08:45] VITALS: BP 152/82; PULSE 55; RESP 16; O2SAT 96
--- NOTE | 2023-10-20 08:49 | W.ANESCHARGE ---
Anesthesia Charges Start Date/Time Anesthesia Start Date: 10/20/23 Anesthesia Start Time: 07:24 Stop Date/Time Anesthesia Stop Date: 10/20/23 Anesthesia Stop Time: 08:18
== END 2023-10-20 08:53 | disposition home or self-care (01) ==
PROVIDERS: Surgery; PCP Physician Assistant Medical; Visit Provider Obstetrics & Gynecology
PROC: 0UJH8ZZ Inspection of Vagina and Cul-de-sac, Via Natural or Artificial Opening Endoscopic (ICD-10-PCS; CPT 57456; principal; 2023-10-20 07:15)
PROC: 0DJ08ZZ Inspection of Upper Intestinal Tract, Via Natural or Artificial Opening Endoscopic (ICD-10-PCS; CPT 57456; 2023-10-20 07:15)
DX: R87.612 Low grade squamous intraepithelial lesion on cytologic smear of cervix (LGSIL) (principal); K21.9 Gastro-esophageal reflux disease without esophagitis; R63.4 Abnormal weight loss
CPT/HCPCS: 57456; 00731; 00952; 43239; 88305; A9270; J1100; J1885; J2250; J2405; J2704; J3010; J7120

== ENCOUNTER 2023-10-20 06:25 | Outpatient (CLI) | payer MEDICARE, MEDICAID, SELFPAY | END 2023-10-20 06:26 | disposition home or self-care (01) | LOC: OP CLINIC 06:26 | PROVIDERS: PCP Physician Assistant Medical; Visit Provider Surgery | DX: K21.9 Gastro-esophageal reflux disease without esophagitis (principal); R19.8 Other specified symptoms and signs involving the digestive system and abdomen | CPT/HCPCS: 43239 ==

== ENCOUNTER 2024-01-26 15:03 | Outpatient (CLI) | payer MEDICARE, MEDICAID, SELFPAY | END 2024-01-26 15:04 | disposition home or self-care (01) | PROVIDERS: PCP Physician Assistant Medical; Visit Provider Physician Assistant Medical | DX: R55 Syncope and collapse (principal); R19.7 Diarrhea, unspecified; R63.4 Abnormal weight loss | CPT/HCPCS: 80053; 80203; 82607; 84443; 86140 ==

== ENCOUNTER 2024-02-01 12:30 | Outpatient (CLI) | payer MEDICARE, MEDICAID, SELFPAY | END 2024-02-01 12:31 | disposition home or self-care (01) | LOC: NFLDREF 02-17 16:04 | PROVIDERS: PCP Physician Assistant Medical; Referring Provider Physician Assistant Medical; Visit Provider Physician Assistant Medical | DX: R19.7 Diarrhea, unspecified (principal) | CPT/HCPCS: 87045; 87046; 87177; 87209; 87427; 87493 ==

== ENCOUNTER 2024-02-08 13:03 | Outpatient (CLI) | payer MEDICARE, MEDICAID, SELFPAY ==
--- NOTE | 2024-02-08 14:00 | CRLHL7_ITS ---
For Patients: As a result of the Century Cures Act, medical imaging exams and procedure reports are released immediately into your electronic medical record. You may view this report before your referring provider. If you have questions, please contact your health care provider. INDICATION: Diarrhea. Technique CT images of the abdomen and pelvis following intravenous contrast. COMPARISON: None. FINDINGS: No concerning opacities in the visualized lungs. No pleural effusion. The heart size is normal. The liver, gallbladder, spleen, and pancreas are unremarkable. The adrenal glands and kidneys are unremarkable. The stomach is underdistended. No abnormally dilated loops of bowel. The appendix is not definitively visualized, though no inflammatory changes are seen in the right lower quadrant. No pathologically enlarged lymph nodes. The abdominal aorta is normal caliber. No free fluid or free air. The urinary bladder is mildly distended. The uterus is anteverted. Very small fat containing umbilical hernia. Postsurgical changes of posterior instrumented interbody fusion from L4-S1. Spinal stimulator within the mid dorsal thoracic spinal canal. Multilevel thoracolumbar spondylosis. No aggressive osseous lesions. IMPRESSION: No acute abnormality in the abdomen or pelvis. Please note that all CT scans at this facility use dose modulation, iterative reconstruction, and/or weight-based dosing when appropriate to reduce radiation dose to as low as reasonably achievable. Dictated by Keyon Hoang MD @ 02/09/2024 7:35:29 PM (Electronically Signed)
--- NOTE | 2024-02-08 15:00 | CRLHL7_ITS ---
For Patients: As a result of the Century Cures Act, medical imaging exams and procedure reports are released immediately into your electronic medical record. You may view this report before your referring provider. If you have questions, please contact your health care provider. INDICATION: Stroke TECHNIQUE: The carotid circulations and the vertebral arteries in the neck were examined with kelly-scale ultrasound, color-flow and Doppler spectral analysis. Degrees of stenosis were determined using SRU 2002 Consensus Panel Criteria. COMPARISON: None. FINDINGS: No carotid plaque or stenosis is demonstrated. Doppler spectral analysis demonstrates peak systolic flow rate of 131 cm/sec in the right internal carotid artery and 70 cm/sec in the left. The ICA-CCA systolic flow ratio on the right is 1.9 and on the left is 1.2. Antegrade vertebral arterial flow is demonstrated bilaterally. IMPRESSION: 1. Negative for carotid artery plaque and hemodynamically significant stenosis by NASCET criteria. 2. Antegrade flow in both vertebral arteries. Dictated by Merrick Cuadra MD @ 02/10/2024 8:01:06 AM (Electronically Signed)
== END 2024-02-08 13:04 | disposition home or self-care (01) ==
LOC: MRI 13:04
PROVIDERS: PCP Physician Assistant Medical; Visit Provider Physician Assistant Medical
DX: R19.7 Diarrhea, unspecified (principal); R55 Syncope and collapse
CPT/HCPCS: 74177; 93880; Q9967

== ENCOUNTER 2024-03-26 08:57 | Outpatient (CLI) | payer MEDICARE, MEDICAID, SELFPAY ==
--- NOTE | 2024-03-26 10:01 | W.ANESCHARGE ---
Anesthesia Charges Start Date/Time Anesthesia Start Date: 03/26/24 Anesthesia Start Time: 09:28 Stop Date/Time Anesthesia Stop Date: 03/26/24 Anesthesia Stop Time: 09:59
== END 2024-03-26 08:58 | disposition home or self-care (01) ==
LOC: OP CLINIC 08:58
PROVIDERS: PCP Physician Assistant Medical; Visit Provider Internal Medicine
DX: R19.7 Diarrhea, unspecified (principal); K57.30 Diverticulosis of large intestine without perforation or abscess without bleeding
CPT/HCPCS: 00811; 45380; 88305; J2704

== ENCOUNTER 2024-04-21 15:31 | Emergency (ER) | payer MEDICARE, MEDICAID, SELFPAY ==
[2024-04-21 15:39] VITALS: BP 112/73; PULSE 61; RESP 18; TEMP 35.8; O2SAT 95; BMI 39.8
--- NOTE | 2024-04-21 15:45 | CRLHL7_ITS ---
For Patients: As a result of the Century Cures Act, medical imaging exams and procedure reports are released immediately into your electronic medical record. You may view this report before your referring provider. If you have questions, please contact your health care provider. Indication: Achilles surgery, Left 5th Toe pain and bruising. Technique: Left foot 3 views. Comparison: None. Findings: Bones: Alignment is normal. Diffuse osseous demineralization which limits sensitivity for the detection of nondisplaced fractures. No fractures or bone lesions. Calcaneal plantar enthesophytes. Calcifications along the distal Achilles. Joint spaces: Unremarkable. Soft tissues: Mild diffuse soft tissue swelling about foot. Impression: No evident acute fracture. Dictated by Vick Worrell MD @ 04/21/2024 4:21:30 PM (Electronically Signed)
--- NOTE | 2024-04-21 15:45 | ED.GENADULT ---
HPI - General Adult General Chief complaint: Extremity Pain/Injury, Lower Stated complaint: injured L foot Time Seen by Provider: 04/21/24 15:33 History of Present Illness HPI narrative: Patient is a 59 female who fell few days ago and injured her left foot primarily her 5th and 4th toe, she also reports pain across her distal metatarsals on the top of her foot. She has had some bruising under her toes. No open wounds noted. She has been ambulatory in flip-flops. Her medical history is reviewed. Related Data Home Medications ?Medication ?Instructions ?Recorded ?Confirmed aspirin 81 mg tablet,delayed 81 mg PO DAILY 03/25/22 03/08/24 release meclizine 12.5 mg tablet 12.5 mg PO DIRECTED PRN 03/25/22 03/08/24 nystatin 100,000 unit/gram topical 1 applic topical .2-3X/Day 03/25/22 03/08/24 cream sumatriptan succinate 50 mg tablet 50 mg PO .As Needed PRN 03/25/22 03/08/24 zonisamide 25 mg capsule 150 mg PO QDAY 08/24/22 03/08/24 cyclobenzaprine 10 mg tablet 20 mg PO QAM 07/11/23 03/08/24 oxycodone-acetaminophen 5 mg-325 1 tab PO DAILY PRN 07/28/23 03/08/24 mg tablet Previous Rx's ?Medication ?Instructions ?Recorded fluticasone propionate 50 2 spray intranasal QDAY 30 days 05/18/22 mcg/actuation nasal #16 grams spray,suspension loratadine 10 mg tablet (Allergy 10 mg PO QDAY 1 month #30 tabs 05/18/22 Relief (loratadine)) furosemide 20 mg tablet 20 mg PO DAILY #90 tabs 05/23/23 fluoxetine 40 mg capsule 40 mg PO QAM #90 caps 07/28/23 diazepam 5 mg tablet 5 mg PO DIRECTED PRN anxiety 09/07/23 #20 tabs albuterol sulfate 90 mcg/actuation 2 puff PO Q4H PRN for muscle spasm 09/26/23 aerosol inhaler #6.7 grams losartan 25 mg tablet 25 mg PO DAILY #90 tabs 10/03/23 omeprazole 40 mg capsule,delayed 40 mg PO DAILY #90 caps 12/06/23 release gabapentin 600 mg tablet 1,200 mg (2 x 600 mg) PO BID #360 12/12/23 tabs trazodone 50 mg tablet 50 mg PO QHS PRN sleep #90 tabs 12/16/23 fluoxetine 20 mg capsule 20 mg PO QDAY #90 caps 01/10/24 peg 3350-electrolytes 236 240 ml PO Q10M #4,000 mL 01/31/24 gram-22.74 gram-6.74 gram-5.86 gram solution (Golytely) sulfamethoxazole 800 1 tab PO BID #14 tabs 02/17/24 mg-trimethoprim 160 mg tablet (Bactrim DS) peg 3350-electrolytes 236 240 ml PO ONCE #4,000 mL 03/19/24 gram-22.74 gram-6.74 gram-5.86 gram solution (Golytely) bupropion HCl 100 mg tablet,12 hr 200 mg (2 x 100 mg) PO QAM #60 tabs 04/12/24 sustained-release (Wellbutrin SR) Allergies Allergy/AdvReac Type Severity Reaction Status Date / Time No Known Allergies Allergy Unknown Verified 03/08/24 14:58 Review of Systems Status of ROS: Reports: 6 or more systems reviewed and unremarkable except as noted in History and below [facility] Medical History Pes anserine bursitis ?M70.50 - Other bursitis of knee, unspecified knee (ICD-10) COVID-19 (~06/05/23) ?U07.1 - COVID-19 (ICD-10) Low grade squamous intraepith lesion on cytologic smear cervix (lgsil) (~2019) ?R87.612 - Low grade squamous intraepithelial lesion on cytologic smear of cervix (LGSIL) (ICD-10) JOSETTE I (cervical intraepithelial neoplasia I) (~09/2023) ?N87.0 - Mild cervical dysplasia (ICD-10) Diarrhea ?R19.7 - Diarrhea, unspecified (ICD-10) Sprain, ACL ?S83.519A - Sprain of anterior cruciate ligament of unspecified knee, initial encounter (ICD-10) Stress fracture ?M84.30XA - Stress fracture, unspecified site, initial encounter for fracture (ICD-10) Positive test for human papillomavirus (HPV) (08/2019) PTSD (post-traumatic stress disorder) ?F43.10 - Post-traumatic stress disorder, unspecified (ICD-10) History of use of contraceptive intrauterine device (IUD) ?Z92.0 - Personal history of contraception (ICD-10) Exposure to severe acute respiratory syndrome coronavirus 2 (SARS-CoV-2) ?Z20.822 - Contact with and (suspected) exposure to COVID-19 (ICD-10) Encounter for removal of intrauterine contraceptive device (IUD) (08/2019) ?Z30.432 - Encounter for removal of intrauterine contraceptive device (ICD-10) Chronic otitis media ?H66.90 - Otitis media, unspecified, unspecified ear (ICD-10) Cellulitis of right hip ?L03.115 - Cellulitis of right lower limb (ICD-10) Surgical History History of section (07/28/11) ?Z98.891 - History of uterine scar from previous surgery (ICD-10) History of cervical discectomy (07/28/11) ?Z98.890 - Other specified postprocedural states (ICD-10) History of appendectomy ?Z90.49 - Acquired absence of other specified parts of digestive tract (ICD-10) History of Achilles tendon repair ?Z98.890 - Other specified postprocedural states (ICD-10) Family History Brother Diabetes Other Brain cancer Social History Narrative: Tobacco use Smoking Status: Current every day smoker What tobacco products do you use: cigarettes Smoking packs per day: 0.25 Smoking cigarettes per day: 5.0 Do you use any of these nicotine containing products: None Second hand tobacco smoke exposure: No How often do you have a drink containing alcohol: never How often do you have six or more drinks on one occasion: Never AUDIT-C Alcohol total score: 0 Non-prescribed substance use: marijuana (any form) Non-prescribed substance use details: medical marijuanna Caffeine: Yes Little interest or pleasure in doing things: several days Feeling down, depressed, or hopeless: more than half the days service: No Exam Narrative: Exam Narrative: Objective: Patient's vital signs are within normal limits She is alert orient x3 Left foot shows some mild tenderness over her 5th toe and 4th toe she got some bruising underneath the toes as well, there is some mild tenderness over the distal metatarsals dorsally. No open wounds, no redness or infection. No ankle swelling or foot swelling of significance. Const: Vital Signs, click to edit/add: Vital Signs - 24 hr 04/21/24 15:39 Temperature 96.5 F L Pulse Rate [Pulse Oximeter] 61 Respiratory Rate 18 Blood Pressure [Ri ght Upper Arm] 112/73 Pulse Oximetry 95 Oxygen Delivery Me thod Room Air Course Vital Signs Vital signs: Initial Vital Signs Temperature 96.5 F L 04/21/24 15:39 Temperature Source Temporal Artery Scan 04/21/24 15:39 Pulse Rate 61 04/21/24 15:39 Respiratory Rate 18 04/21/24 15:39 Blood Pressure 112/73 04/21/24 15:39 Blood Pressure Mean 86 04/21/24 15:39 Pulse Oximetry 95 04/21/24 15:39 Oxygen Delivery Method Room Air 04/21/24 15:39 Vital Signs Temperature 96.5 F L 04/21/24 15:39 Pulse Rate 61 04/21/24 15:39 Respiratory Rate 18 04/21/24 15:39 Blood Pressure 112/73 04/21/24 15:39 Pulse Oximetry 95 04/21/24 15:39 Oxygen Delivery Method Room Air 04/21/24 15:39 Temperature 96.5 F L 04/21/24 15:39 Pulse Rate 61 04/21/24 15:39 Respiratory Rate 18 04/21/24 15:39 Blood Pressure 112/73 04/21/24 15:39 Pulse Oximetry 95 04/21/24 15:39 Oxygen Delivery Method Room Air 04/21/24 15:39 Medical Decision Making MDM Narrative Medical decision making narrative: 59-year-old female with a fall with left forefoot injury. Will check an x-ray of her foot three view. Disposition pending findings. Addendum 4:25 p.m.: The given the patient's x-ray I read as negative, no DIS definite fracture, she does possibly have small crack in the proximal phalanx of the little toe but there is no definitive evidence of at fracture. Radiology read it as negative. I would recommend light weight-bearing, firm soled shoe, icing, Advil as needed, return problems or concerns, follow-up with primary care in a week if any issues or problems. Patient was comfortable plan. Discharge Plan Discharge Clinical Impression: Injury of foot, left Patient Disposition: Home w/ Parent or Adult Condition: Stable Additional Instructions: Limit weight-bearing as tolerated for the next few days, icing on a regular basis, Advil as needed. Recheck with primary care in a week if not better. Activity Level: Light activity Discharge Diet: Heart Healthy (2 gm sodium, low fat) Prescriptions: No Action aspirin 81 mg tablet,delayed release (DR/EC) 81 mg PO DAILY meclizine 12.5 mg tablet 12.5 mg PO DIRECTED PRN sumatriptan succinate 50 mg tablet 50 mg PO .As Needed PRN Rx Instructions: ONE TAB AT ONSET OF HEADACHE, MAY REPEAT Q2H PRN, MAX 200 MG/24 HRS nystatin 100,000 unit/gram cream 1 applic topical .2-3X/Day fluticasone propionate 50 mcg/actuation spray,suspension 2 spray intranasal QDAY 30 Days Qty: 16 11RF Rx Instructions: administer into each nostril loratadine [Allergy Relief (loratadine)] 10 mg tablet 10 mg PO QDAY 30 Days Qty: 30 3RF furosemide 20 mg tablet 20 mg PO DAILY Qty: 90 3RF cyclobenzaprine 10 mg tablet 20 mg PO QAM Patient Comments: Patient states she takes it in the AM and bedtime. oxycodone-acetaminophen 5-325 mg tablet 1 tab PO DAILY PRN zonisamide 25 mg capsule 150 mg PO QDAY Patient Comments: Patient takes 4 at bedtime. losartan 25 mg tablet 25 mg PO DAILY Qty: 90 3RF Rx Instructions: once daily for blood pressure diazepam 5 mg tablet 5 mg PO DIRECTED PRN (Reason: anxiety) Qty: 20 0RF fluoxetine 40 mg capsule 40 mg PO QAM Qty: 90 1RF Rx Instructions: Take 1 capsule daily in addition to already prescribed 20 mg capsule Total of 60 mg daily albuterol sulfate 90 mcg/actuation HFA aerosol inhaler 2 puff PO Q4H PRN (Reason: for muscle spasm) Qty: 6.7 0RF omeprazole 40 mg capsule,delayed release(DR/EC) 40 mg PO DAILY Qty: 90 2RF Rx Instructions: for GERD gabapentin 600 mg tablet 1,200 mg PO BID Qty: 360 1RF trazodone 50 mg tablet 50 mg PO QHS PRN (Reason: sleep) Qty: 90 3RF Rx Instructions: one tablet nightly for sleep fluoxetine 20 mg capsule 20 mg PO QDAY Qty: 90 1RF Rx Instructions: Take 1 capsule in addition to already prescribed 40 mg Total of 60 mg per day peg 3350-electrolytes [Golytely] 236-22.74-6.74 -5.86 gram recon soln 240 ml PO Q10M Qty: 4000 0RF Rx Instructions: until fecal effluent is clear sulfamethoxazole-trimethoprim [Bactrim DS] 800-160 mg tablet 1 tab PO BID Qty: 14 0RF peg 3350-electrolytes [Golytely] 236-22.74-6.74 -5.86 gram recon soln 240 ml PO ONCE Qty: 4000 0RF Rx Instructions: 4pm day prior to procedure. Drink 8oz glass every 15 minutes until 1/2 of solution is gone. 6 hours prior to your procedure time drink 8oz glass every 15 minutes until remaining solution is gone. bupropion HCl [Wellbutrin SR] 100 mg tablet sustained-release 12 hr 200 mg PO QAM Qty: 60 3RF Follow Up/Referrals: Chelsea Montalvo PA-C [Primary Care Provider] - Stand Alone Forms: [facility] Info Instructions
== END 2024-04-21 16:33 | disposition home or self-care (01) ==
LOC: ED 16:30
PROVIDERS: Emergency Provider Family Medicine; PCP Physician Assistant Medical
DX: S99.922A Unspecified injury of left foot, initial encounter (principal)
CPT/HCPCS: 73630; 99283; 99284

== ENCOUNTER 2024-06-11 12:41 | Outpatient (CLI) | payer MEDICARE, MEDICAID, SELFPAY ==
--- NOTE | 2024-06-11 13:00 | CRLHL7_ITS ---
For Patients: As a result of the Cures Act, medical imaging exams and procedure reports are released immediately into your electronic medical record. You may view this report before your referring provider. If you have questions, please contact your health care provider. INDICATION: Memory change. Syncope. TECHNIQUE: Sagittal and axial T1 axial FLAIR T2, diffusion weighted, susceptibility weighted and gadolinium-enhanced multi planer T1 weighted sequences through the entire brain. COMPARISON: Previous MRI brain dated 07/14/2022. FINDINGS: The lateral 3rd and 4th ventricles are normal in size and shape. There is no evidence of acute ischemic infarction. There no areas of diffusion restriction. There is no evidence of intracranial hemorrhage. No enhancing intra-axial or extra-axial lesion. Minimal chronic microvascular ischemic change within cerebral white matter is stable. Orbits sella paranasal sinuses mastoid air cells and skull base are unremarkable. IMPRESSION: 1. No significant interval change compared to prior brain MRI dated 07/14/2022. 2. No evidence of acute ischemic infarction, intracranial hemorrhage, mass or enhancing lesion. No evidence of acute intracranial abnormality. 3. Minimal chronic microvascular ischemic change. Dictated by Baron Vera MD @ 06/12/2024 8:00:56 AM (Electronically Signed)
== END 2024-06-11 12:42 | disposition home or self-care (01) ==
PROVIDERS: PCP Physician Assistant Medical; Visit Provider Physician Assistant Medical
DX: R55 Syncope and collapse (principal); I67.82 Cerebral ischemia
CPT/HCPCS: 70553; A9575

== ENCOUNTER 2024-10-15 15:51 | Outpatient (CLI) | payer MEDICARE, MEDICAID, SELFPAY ==
--- NOTE | 2024-10-15 16:00 | CRLHL7_ITS ---
For Patients: As a result of the Century Cures Act, medical imaging exams and procedure reports are released immediately into your electronic medical record. You may view this report before your referring provider. If you have questions, please contact your health care provider. Indication Lung cancer screening. TECHNIQUE: Low-dose noncontrast CT images of the chest. Dose reduction techniques used. COMPARISON: CT chest 10/12/2023. FINDINGS: Stable 5 mm solid nodule right apex (series 3 image 28). Stable 4 mm solid nodule left lower lobe (series 3 image 86). No focal consolidation, pleural effusion, or pneumothorax. No new or enlarging pulmonary nodules. The heart size is normal. No pericardial effusion. Coronary artery atherosclerotic calcifications. No mediastinal or hilar lymphadenopathy. Limited images through the upper abdomen are unremarkable. Multilevel thoracic spondylosis. No aggressive osseous lesions. Fusion hardware in the lower anterior cervical spine. Spinal stimulator device terminates in the lower dorsal thoracic canal. IMPRESSION: Stable small pulmonary nodules. Lung rads category 2, benign. Continue annual screening with low-dose chest CT in 12 months. Please note that all CT scans at this facility use dose modulation, iterative reconstruction, and/or weight-based dosing when appropriate to reduce radiation dose to as low as reasonably achievable. Dictated by Keyon Hoang MD @ 10/15/2024 7:07:01 PM (Electronically Signed)
== END 2024-10-15 15:52 | disposition home or self-care (01) ==
PROVIDERS: PCP Physician Assistant Medical; Visit Provider Physician Assistant Medical
DX: Z12.2 Encounter for screening for malignant neoplasm of respiratory organs (principal); R91.8 Other nonspecific abnormal finding of lung field; F17.210 Nicotine dependence, cigarettes, uncomplicated
CPT/HCPCS: 71271

== ENCOUNTER 2024-10-25 13:57 | Outpatient (CLI) | payer MEDICARE, MEDICAID, SELFPAY | END 2024-10-25 13:58 | disposition home or self-care (01) | LOC: MAMMO 13:58 | PROVIDERS: PCP Physician Assistant Medical; Visit Provider Physician Assistant Medical | DX: Z12.31 Encounter for screening mammogram for malignant neoplasm of breast (principal) | CPT/HCPCS: 77063; 77067 ==

== ENCOUNTER 2025-04-01 13:34 | Outpatient (CLI) | payer MEDICARE, MEDICAID, SELFPAY | END 2025-04-01 13:35 | disposition home or self-care (01) | PROVIDERS: PCP Physician Assistant Medical; Visit Provider Physician Assistant Medical | DX: Z00.00 Encounter for general adult medical examination without abnormal findings (principal); I10 Essential (primary) hypertension; M85.80 Other specified disorders of bone density and structure, unspecified site; R41.89 Other symptoms and signs involving cognitive functions and awareness; N39.0 Urinary tract infection, site not specified; Z79.899 Other long term (current) drug therapy | CPT/HCPCS: 80053; 82306; 82607; 84443; 87086 ==

== ENCOUNTER 2025-05-16 12:47 | Outpatient (CLI) | payer MEDICARE, MEDICAID, SELFPAY ==
--- NOTE | 2025-05-16 13:00 | CRLHL7_ITS ---
For Patients: As a result of the Century Cures Act, medical imaging exams and procedure reports are released immediately into your electronic medical record. You may view this report before your referring provider. If you have questions, please contact your health care provider. XR DXA BONE MINERAL DENSITY (BMD) Current height (in): 64.0. Weight (lb): 222.0. Menopause age: 54. Ethnicity: White. Reason for exam: Low bone mass. Screening. 1. Have you had a previous hip or vertebral fracture? No. 2. Have you had any fractures during your adult life which did not result from significant trauma (e.g., auto accident)? No. 3. Did either of your parents have a hip fracture? No. 4. Do you smoke? Yes. 5. Have you ever taken Glucocorticoids? No. 6. Do you have rheumatoid arthritis? No. 7. Do you have secondary osteoporosis? No. 8. Do you drink 3 or more alcoholic drinks per day? No. 9. Are you being treated for osteoporosis? No. 10. Have you ever taken any of the following medications: Actonel, Evista, Fosamax, Miacalcin, Reclast, Boniva, Forteo, HRT (i.e. estrogen/hormone therapy), Protelos, Prolia, Vitamin D, Calcium, other ??? please specify. ANSWER: Yes, vitamin D, calcium. 11. Do you have any of the following medical conditions: Anorexia or bulimia, asthma or emphysema, end stage renal disease, hyperparathyroidism, any seizure disorders, cancer, inflammatory bowel diseases, hysterectomy, other ??? please specify. ANSWER: Yes, inflammatory bowel disease. 12. What was your maximum height (inches)? 64. 13. Do you perform weight bearing exercise regularly? No. 14. Do you regularly consume dairy products? No. 15. Do you drink caffeinated beverages? Yes. 16. At what age did your period start? 12. 17. Are you premenopausal? No. 18. How many full-term pregnancies have you had? 1. 19. Have you ever missed your period for more than 6 months in a row (not including or menopause)? No. TECHNIQUE: Bone mineral density study was performed using the [employer]. FINDINGS: The results of the study expressed as bone mineral density (BMD) are as follows: Neck Left: BMD: 0.612 g/cm2. T-score: -2.1. Z-score: -0.8 Right: BMD: 0.678 g/cm2. T-score: -1.5. Z-score: -0.2 Total Left: BMD: 0.914 g/cm2. T-score: -0.2. Z-score: 0.7 Right: BMD: 0.852g/cm2. T-score: -0.7. Z-score: 0.2 Left 33%: BMD: 0.609 g/cm2. T-score: -1.4. Z-score: -0.1 IMPRESSION: Osteopenia. *Comparison exams done prior to 01/2020 were performed on different unit, [employer]. COMPARISON: Compared with scan of decreased by 0.9 percent at the hip. FRAX 10-year Fracture Risk Major Osteoporotic Fracture: 9.4 percent Hip Fracture: 2.0 percent Reported Risk Factors: [place] () Neck BMD = 0.612, BMI = 38.1 Timmy Mandujano M.D. Diagnostic Radiologist [email or web address] Transcribed: 3:41 pm DW/Dictated by: Timmy Mandujano MD @ 05/16/2025 3:24:00 PM (Electronically Signed)
== END 2025-05-16 12:48 | disposition home or self-care (01) ==
LOC: RAD 12:50
PROVIDERS: PCP Physician Assistant Medical; Visit Provider Physician Assistant Medical
DX: Z13.820 Encounter for screening for osteoporosis (principal); M85.89 Other specified disorders of bone density and structure, multiple sites; Z78.0 Asymptomatic menopausal state
CPT/HCPCS: 77080